=== PATIENT | female | born 1995 ===

== ENCOUNTER 2024-07-07 16:36 | Emergency (ER) | payer OTHER, SELFPAY ==
[2024-07-07 16:41] VITALS: BP 126/85
[2024-07-07] MEDS: AUGMENTIN 875 MG/125 MG 1 TABLET PO (18:20)
--- NOTE | 2024-07-07 19:11 | ED.GENMED ---
History of Present Illness
General
Chief Complaint: Oral/Mouth Problem
Source: patient
Exam Limitations: none
Time Seen by Provider: 07/07/24 17:59
Nursing documentation reviewed up to this point in time: agreed with
History of Present Illness
History of Present Illness:
Patient to ED with complaint of swelling to sublingual region of mouth. States she had URI approx 1 week ago and symptms started after URI. Denies fever/chills. No difficulty swallowing, No prior historry of same.
Past History
Past History
ED Past Medical History: None
ED Past Surgical History: None
Review of Systems
Review of Systems
Allergies reviewed?: Yes
All Other Systems: ROS reviewed and negative except as documented in HPI and ROS
Constitutional: Reports no symptoms
EENT: Reports other (pain and swelling to sublingual region)
Respiratory: Reports no symptoms
Cardiac: Reports no symptoms
ABD/GI: Reports no symptoms
Musculoskeletal: Reports no symptoms
Skin: Reports no symptoms
Neurological: Reports no symptoms
Psychiatric: Reports no symptoms
Phy Exam
General Physical Exam
General Presentation: well appearing and no apparent distress
General age: appears stated age
General Skin: warm and dry
General Habitus: normal
General Mental: alert
ENT Exam
ENT Exam: pharynx normal, swallowing well and other (mild sublingual swelling)
Musculoskeletal Exam
Musculoskeletal Exam: full ROM and neuro vasc intact
Skin Exam
Skin Exam: normal color, warm/dry and no rash
Psychiatric Exam
Psychiatric Exam: normal mood/affect
Course
Orders/Labs/Results
Orders:
Orders
07/07/24 18:11
Amoxicillin 875 mg/Clav 125 mg [Augmentin 875 mg/125 mg] 1 tablet PO NOW STA
Vital Signs
Initial and Last Documented VS:
Initial Vital Signs
Temp Pulse Resp BP
98.5 F 86 20 126/85
07/07/24 16:41 07/07/24 16:41 07/07/24 16:41 07/07/24 16:41
Last Documented Vital Signs
Temp Pulse Resp BP
98.5 F 86 20 126/85
07/07/24 16:41 07/07/24 16:41 07/07/24 16:41 07/07/24 16:41
*Critical Care Note
Total Time (30-74mins, 75-104mins- exclusive of procedures): Not Applicable
Update Note
Update Note:
Mild sublimgual swelling - possible salivary stone. WIll cover with antibiotic, recommend f/u dentist. Given instructions on s/s to return to ED and she is agreeable to plan.
ED Attending Note
-
Portions of this chart may have been created with voice recognition software.� Occasional wrong word or��sound alike� substitutions may have occurred due to the inherent limitations of voice recognition software.
Discharge Plan
Departure
Patient Disposition: Home (Routine Discharge)
Date of Disposition: 07/07/24
Time of Disposition: 18:11
Patient with high blood pressure during this ER visit?: No
Condition: Good
Covid-19: Not Applicable
Discharge Problem:
Sublingual gland swelling
Instructions: Salivary Gland Stones
Prescriptions:
New
amoxicillin-pot clavulanate 875-125 mg tablet
1 tab PO BID Qty: 10 0RF
No Action
Iron
1 tab PO DAILY
Vitamin
1 tab PO DAILY
Vitamin D
1 tab PO DAILY
acetaminophen 325 mg Tablet
650 mg PO Q4HPRN PRN (Reason: mild pain) Qty: 0 0RF
ibuprofen 600 mg Tablet
600 mg PO Q4HPRN PRN (Reason: moderate pain/cramps) Qty: 0 0RF
Referrals:
Bertha Cabrera, DMD [Active] -
Interventions
Interventions:
*Risk Screen - Suicide Last Done: 07/07/24 17:38
*Neglect/Abuse Screening Last Done: 07/07/24 17:38
*Nursing Disposition Last Done: 07/07/24 18:56
Discharge Date and Time
Discharge Date/Time: 07/07/24 18:56
Print Language: IRAQI
== END 2024-07-07 18:56 | disposition home or self-care (01) ==
LOC: EMR 16:36
PROVIDERS: EMERGENCY PHYSICIAN Student in an Organized Health Care Education/Training Program
DX: R59.9 Enlarged lymph nodes, unspecified (principal)
CPT/HCPCS: 99282

== ENCOUNTER 2024-07-10 19:00 | Emergency (ER) | payer OTHER, SELFPAY ==
[2024-07-10 19:00] VITALS: BMI 30.3
[2024-07-10 19:05] VITALS: BP 121/80
[2024-07-10 19:26] LABS: % Basophils 0.4 % (0-2); % Immature Granulocytes 1.4 % (0-0.5); % Lymphocytes 15.5 % (20.5-51.1); % Monocytes 6.5 % (1.7-9.3); % Neutrophils 75.2 % (42.2-75.2); Absolute Basophils 0.1 10^3/uL (0-0.2); Absolute Eosinophils 0.2 10^3/uL (0-0.7); Absolute Immature Granulocytes 0.2 10^3/uL (0-0.05); Absolute Lymphocytes 2.3 10^3/uL (1.2-3.4); Absolute Neutrophils 11.3 10^3/uL (1.4-6.5); Hematocrit 35.4 % (37.0-47.0); Hemoglobin 12.8 g/dL (12.0-16.0); Mean Corp Hgb Conc. 36.2 g/dL (33.0-37.0); Mean Corpuscular Volume 82.9 fL (81.0-99.0); Mean Platelet Volume 10.4 fL (7.4-10.4); Nucleated Red Blood Cells % 0 %; Platelet Count 289 10^3/uL (130-400); Red Blood Cell Count 4.27 10^6/uL (4.20-5.40); Red Cell Dist. Width 12.3 % (11.5-14.5)
[2024-07-10 19:46] LABS: ALT (SGPT) 63 U/L (0-35); AST (SGOT) 40 U/L (14-36); Albumin 4.3 g/dl (3.5-5.0); Alkaline Phosphatase 121 U/L (38-126); Blood Urea Nitrogen 8 mg/dl (7-17); Carbon Dioxide 26 mmol/L (22-30); Chloride 101 mmol/L (98-107); Glucose 115 mg/dl (70-99); Potassium 4.5 mmol/L (3.5-5.1); Sodium 140 mmol/L (135-145); Total Bilirubin 0.8 mg/dl (0.2-1.3); Total Protein 7.6 g/dl (6.3-8.2); eGFR > 60.00
[2024-07-10 21:18] LABS: HCG, Serum Qualitative Screen Positive
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
--- NOTE | 2024-07-10 21:49 | ED.GENMED ---
History of Present Illness
<CRIS Greco - Last Filed: 07/10/24 23:02>
General
Chief Complaint: Oral/Mouth Problem
Source: patient
Exam Limitations: none
Time Seen by Provider: 07/10/24 21:03
History of Present Illness
History of Present Illness:
This is a 28 year old female that comes in with c/o swelling under her tongue. States that this started 2 weeks ago as being inflamed. States that this has continued to progress. Patient was seen here on Sunday and given Augmentin. States that she
feels that her tongue is swelling and that the lower gum is white and inflamed. States that she has not been able to eat for 4 days and she is 18 weeks . States that she couldn't get the antibiotics until Sunday night. States that she took
one this morning and then vomited. States that she is nauseated. Denies any fever, chills, chest pain, SOB, abd pain, diarrhea, headache, dizziness, urianry burning.
Past History
<CRIS Greco - Last Filed: 07/10/24 23:02>
Past History
ED Past Medical History: None
ED Past Surgical History: None
Social History
Tobacco: Non-smoker
Alcohol: None
Personal: Single
Living: with family
Review of Systems
<CRIS Greco - Last Filed: 07/10/24 23:02>
Review of Systems
All Other Systems: ROS reviewed and negative except as documented in HPI and ROS
Constitutional: Reports no symptoms; Denies fever or chills
EENT: Reports other (Inflammation under her tongue and lower anterior gum)
Respiratory: Reports no symptoms; Denies cough or trouble breathing
Cardiac: Reports no symptoms; Denies chest pain
ABD/GI: Reports nausea; Denies abdominal pain
: Reports no symptoms
Musculoskeletal: Reports no symptoms
Skin: Reports no symptoms
Neurological: Reports no symptoms; Denies dizzy or headache
Psychiatric: Reports no symptoms
Phy Exam
<CRIS Greco - Last Filed: 07/10/24 23:02>
General Physical Exam
General Presentation: no apparent distress
General age: appears stated age
General Skin: warm and dry
General Habitus: normal
General Mental: alert
General Hydration: appears well hydrated
ENT Exam
ENT Exam: TM's normal, neck supple and other (Swelling noted under the tongue on the soft pallet. Gum line appears white and swollen. NO difficulty swallowing. )
Eye Exam
Eye Exam: EOMI
Cardiovascular Exam
Cardiovascular Exam: regular rate/rhythm, no murmur and normal peripheral pulses
Pulmonary Exam
Pulmonary Exam: lungs clear, no respiratory distress, no rales, chest non tender, no crackles, no rhonchi, no wheezing and no cough
Musculoskeletal Exam
Musculoskeletal Exam: full ROM
Skin Exam
Skin Exam: normal color, warm/dry, no rash and no petechia
Psychiatric Exam
Psychiatric Exam: normal mood/affect
Course
<CRIS Greco - Last Filed: 07/10/24 23:02>
Orders/Labs/Results
Orders:
Orders
07/10/24 19:20
Complete Blood Count/With Diff Urgent
Comprehensive Metabolic Panel Urgent
HCG, Serum Qualitative Screen Urgent
Comment: ADDON
07/10/24 20:36
Add On- LAB Urgent
Tests Added?: serum hcg
07/10/24 21:47
Facial Bones w Contrast CT [CT Facial Bones W/ Iv Contrast] Urgent
Comment:
Reason For Exam: swelling under tongue
07/10/24 21:50
0.9% Sodium Chloride 1000 ml [Nss] 1,000 ml IV BOLUS
Metoclopramide [Reglan] 10 mg IV NOW STA
Nursing to Place Non Medication Order As Directed
Physician Order: Have patient take her antibiotic that is with her after the Reglan.
Above order entered?: Yes
Abnormal Lab Results
07/10/24
19:20
WBC 15.0 H 10^3/uL
(4.8-10.8)
Hct 35.4 L %
(37.0-47.0)
Abs Immat Gran (auto) 0.2 H 10^3/uL
(0-0.05)
Absolute Neuts (auto) 11.3 H 10^3/uL
(1.4-6.5)
Absolute Monos (auto) 1.0 H 10^3/uL
(0.1-0.6)
Immature Gran % 1.4 H %
(0-0.5)
Lymphocytes % 15.5 L %
(20.5-51.1)
Creatinine 0.5 L mg/dL
(0.6-1.0)
Glucose 115 H mg/dl
(70-99)
AST 40 H U/L
(14-36)
ALT 63 H U/L
(0-35)
07/10/24 19:20
07/10/24 19:20
Leukocytosis, Glucose nonfasting. AST/ALT mildly elevated.
Vital Signs
Initial and Last Documented VS:
Initial Vital Signs
Temp Pulse Resp BP Pulse Ox
98.4 F 91 18 121/80 99
07/10/24 19:05 07/10/24 19:05 07/10/24 19:05 07/10/24 19:05 07/10/24 19:05
Last Documented Vital Signs
Temp Pulse Resp BP Pulse Ox
98.4 F 93 18 117/63 99
07/10/24 19:05 07/10/24 22:15 07/10/24 22:15 07/10/24 22:15 07/10/24 22:15
<Aga Tsai, DO - Last Filed: 07/10/24 22:37>
Orders/Labs/Results
Orders:
Orders
07/10/24 19:20
Complete Blood Count/With Diff Urgent
Comprehensive Metabolic Panel Urgent
HCG, Serum Qualitative Screen Urgent
Comment: ADDON
07/10/24 20:36
Add On- LAB Urgent
Tests Added?: serum hcg
07/10/24 21:47
[address] Bones w Contrast CT [CT Facial Bones W/ Iv Contrast] Urgent
Comment:
Reason For Exam: swelling under tongue
07/10/24 21:50
0.9% Sodium Chloride 1000 ml [Nss] 1,000 ml IV BOLUS
Metoclopramide [Reglan] 10 mg IV NOW STA
Nursing to Place Non Medication Order As Directed
Physician Order: Have patient take her antibiotic that is with her after the Reglan.
Above order entered?: Yes
Abnormal Lab Results
07/10/24
19:20
WBC 15.0 H 10^3/uL
(4.8-10.8)
Hct 35.4 L %
(37.0-47.0)
Abs Immat Gran (auto) 0.2 H 10^3/uL
(0-0.05)
Absolute Neuts (auto) 11.3 H 10^3/uL
(1.4-6.5)
Absolute Monos (auto) 1.0 H 10^3/uL
(0.1-0.6)
Immature Gran % 1.4 H %
(0-0.5)
Lymphocytes % 15.5 L %
(20.5-51.1)
Creatinine 0.5 L mg/dL
(0.6-1.0)
Glucose 115 H mg/dl
(70-99)
AST 40 H U/L
(14-36)
ALT 63 H U/L
(0-35)
07/10/24 19:20
07/10/24 19:20
Vital Signs
Initial and Last Documented VS:
Initial Vital Signs
Temp Pulse Resp BP Pulse Ox
98.4 F 91 18 121/80 99
07/10/24 19:05 07/10/24 19:05 07/10/24 19:05 07/10/24 19:05 07/10/24 19:05
Last Documented Vital Signs
Temp Pulse Resp BP Pulse Ox
98.4 F 93 18 117/63 99
07/10/24 19:05 07/10/24 22:15 07/10/24 22:15 07/10/24 22:15 07/10/24 22:15
<CRIS Greco - Last Filed: 07/10/24 23:02>
MDM/Problems Addressed
Differential Diagnosis Includes:
Dental abscess
MDM/Problems Addressed:
This is a 28 year old female that comes in with c/o swelling under her tongue. Patient was seen here on Sunday and started on antibiotics. States that she can't eat and has not been able to keep the anibiotics down. States that she has an
appointment tomorrow with an oral surgeon.
Will check labs and CT face, Will give IV fluids and Reglan for the nausea. Patient to follow up with the ORal surgeon tomorrow.
Chronic conditions affecting care:
NA
Acute Exacerbation and/or Progression of Chronic Illness:
NA
<CRIS Greco - Last Filed: 07/10/24 23:02>
*Radiology
Radiology exam reviewed: radiology read reviewed (CT facial bones-Essentially unremarkable exam. No fluid collections. )
*Pulse Oximetry
Patient hypoxic: no
*EKG
Interpreted by ED Provider?: NA
Rate: EKG- N/A
*Furnace Stock Inspector Interpretation
Rate: Furnace Stock Inspector- N/A
*Critical Care Note
Total Time (30-74mins, 75-104mins- exclusive of procedures): Not Applicable
ED Attending Note
<CRIS Greco - Last Filed: 07/10/24 23:02>
-
Portions of this chart may have been created with voice recognition software.� Occasional wrong word or��sound alike� substitutions may have occurred due to the inherent limitations of voice recognition software.
<Aga Tsai DO - Last Filed: 07/10/24 22:37>
ED Attending Note
Patient seen and examined by attending physician: Yes
I performed the substantive portion of visit, reviewed & personally made and approve the management plan that is documented in note by myself or RAKEL.: Yes
I performed a history and physical exam of patient and discussed management with resident, I reviewed resident's note and agree with documented findings and plan of care.: Yes
ED Attending Note:
Patient seen and examined at bedside, 28-year-old female, 18 weeks presenting for worsening swelling underneath her tongue. Reports symptoms for the past 2 weeks. She notes increasing pain to the area, particularly with eating. Denies
fever. Denies drainage. She came to the ER 3 days ago, was thought to have a growing infection versus a salivary gland stone. She was started on an antibiotic, however notes that she is difficulty tolerating the antibiotic. Symptoms were
preceded by URI. She went to the dentist today who was concerned on the appearance of the swelling, sent to the ER. She denies difficulty breathing or difficulty handling secretions. Vital signs are normal.
On exam, patient is well-appearing, handling secretions without difficulty, no respiratory distress. Airway is intact and patent. There is a focal area of swelling underneath the tongue, sublingual, which looks like a growth. Mild tenderness to
palpation without fluctuance. The floor of the mouth does not appear to be involved, without concern for Lud[place]igs. Unclear etiology of the swelling. For this reason decision made to proceed with CT imaging. Will shield given . Labs
obtained, mild leukocytosis, however could be reactive in .
22:30 - CT without acute process or significant sign of infection. At this time suspect dermoid cyst. Patient has an appointment with the oral surgeon tomorrow, which I advised that she maintain. Otherwise feel stable for discharge. Strict
return precautions communicated and patient verbalized understanding
Discharge Plan
Departure
Patient Disposition: Home (Routine Discharge)
Date of Disposition: 07/10/24
Time of Disposition: 22:57
Patient with high blood pressure during this ER visit?: No
Condition: Good
Covid-19: Not Applicable
Discharge Problem:
Swelling lower palet
Prescriptions:
New
metoclopramide HCl [Reglan] 10 mg tablet
10 mg PO Q6H PRN (Reason: nausea and vomiting) Qty: 6 0RF
No Action
Iron
1 tab PO DAILY
Vitamin
1 tab PO DAILY
Vitamin D
1 tab PO DAILY
acetaminophen 325 mg Tablet
650 mg PO Q4HPRN PRN (Reason: mild pain) Qty: 0 0RF
ibuprofen 600 mg Tablet
600 mg PO Q4HPRN PRN (Reason: moderate pain/cramps) Qty: 0 0RF
amoxicillin-pot clavulanate 875-125 mg tablet
1 tab PO BID Qty: 10 0RF
Referrals:
NONE,* [Family Provider] -
Activity Restrictions/Additional Instructions:
As discussed, your blood work shows that your white blood cell count is elevated. This can happen with . Your CT of the face is negative for any fluid collection or abscess. Please continue with the antibiotics you have been given. A
prescription for Reglan has been sent to your Pharmacy to help with any nausea/vomiting. Follow up with the Oral surgeon tomorrow as scheduled. IF YOU HAVE ANY OTHER CONCERNS PLEASE RETURN TO THE EMERGENCY ROOM.
Interventions
Interventions:
*Risk Screen - Suicide Last Done: 07/10/24 20:37
*General Assessment Last Done: 07/10/24 19:05
*Neglect/Abuse Screening Last Done: 07/10/24 19:05
ED- Fall Risk Assessment Last Done: 07/10/24 20:46
Discharge Date and Time
Print Language: DANISH
[2024-07-10] MEDS: REGLAN 10 MG IV (22:13)
[2024-07-10] MEDS: NSS 1000 IV (22:14)
[2024-07-10 22:15] VITALS: BP 117/63
[2024-07-10 23:05] VITALS: BP 114/68
[2024-07-10 23:17] VITALS: BP 114/68
== END 2024-07-10 23:30 | disposition home or self-care (01) ==
LOC: EMR 19:00
PROVIDERS: Emergency Medicine; EMERGENCY PHYSICIAN Student in an Organized Health Care Education/Training Program
DX: O99.512 Diseases of the respiratory system complicating pregnancy, second trimester (principal); O21.9 Vomiting of pregnancy, unspecified; Z3A.18 18 weeks gestation of pregnancy; R22.0 Localized swelling, mass and lump, head
CPT/HCPCS: 99285; 96361; 96374; 70487; 80053; 84703; 85025; Q9967

== ENCOUNTER 2024-12-26 11:03 | Observation (INO) | payer OTHER, SELFPAY ==
[2024-12-26 11:09] VITALS: BP 115/63; BMI 35.9
== END 2024-12-26 12:10 | disposition home or self-care (01) ==
LOC: LDRP 11:03
PROVIDERS: ADMITTING PHYSICIAN Obstetrics & Gynecology
DX: O48.0 Post-term pregnancy (principal); Z3A.41 41 weeks gestation of pregnancy
CPT/HCPCS: 59025; 36415; 76815; 86850; 86900; 86901; G0378

== ENCOUNTER 2024-12-28 10:12 | Inpatient (IN) | payer OTHER, SELFPAY ==
[2024-12-28 10:22] VITALS: BP 122/80; BMI 35.9
[2024-12-28] MEDS: LR 1000 IV ×2 (11:15→12:16)
[2024-12-28 11:33] LABS: % Basophils 0.6 % (0-2); % Eosinophils 0.3 % (0-6); % Immature Granulocytes 0.4 % (0-0.5); % Lymphocytes 13.5 % (20.5-51.1); % Monocytes 5.2 % (1.7-9.3); Absolute Basophils 0.1 10^3/uL (0-0.2); Absolute Immature Granulocytes 0.1 10^3/uL (0-0.05); Absolute Lymphocytes 1.8 10^3/uL (1.2-3.4); Absolute Monocytes 0.7 10^3/uL (0.1-0.6); Absolute Neutrophils 10.4 10^3/uL (1.4-6.5); Hemoglobin 9.9 g/dL (12.0-16.0); Mean Corp Hgb Conc. 31.9 g/dL (33.0-37.0); Mean Corpuscular Volume 78.3 fL (81.0-99.0); Mean Platelet Volume 11.2 fL (7.4-10.4); Nucleated Red Blood Cells % 0.2 %; Platelet Count 171 10^3/uL (130-400); Red Blood Cell Count 3.96 10^6/uL (4.20-5.40); Red Cell Dist. Width 15.6 % (11.5-14.5)
[2024-12-28] MEDS: VALTREX 500 MG PO (12:12)
[2024-12-28] MEDS: PITOCIN 30 UNITS/NSS 500 ML IV (19:34)
[2024-12-28] MEDS: MOTRIN 600 MG PO (21:25)
[2024-12-29 04:48] LABS: Hematocrit 27.7 % (37.0-47.0)
[2024-12-29] MEDS: MOTRIN 600 MG PO ×3 (08:01→20:34)
[2024-12-29] MEDS: PRENATAL PLUS 1 TABLET PO (08:01)
[2024-12-29] MEDS: SENOKOT-S 1 TABLET PO (08:01)
--- NOTE | 2024-12-29 10:31 | CM ---
Met with new mom Mary at bedside
Mom reports she lives at listed address, [place] [phone] with her 2 yo son
SHARI Plascencia - involved/supportive. + family support
Currently deciding on baby's name
Mom reports she has supplies at home for including crib and car seat
Mom reports she has a breast pump at home - declining breast pump
Peds - plans to use [facility] [place]
[facility] - [facility] for f/u [facility]
CM remains available to family during admission
[2024-12-30] MEDS: MOTRIN 600 MG PO (05:27)
[2024-12-30] MEDS: FEOSOL 325 MG PO (07:57)
[2024-12-30] MEDS: PRENATAL PLUS 1 TABLET PO (07:57)
[2024-12-30 15:54] LABS: Syphilis/T. pallidum Ab Reflex Negative (Negative)
== END 2024-12-30 14:45 | disposition home or self-care (01) | DRG 807 ==
LOC: LDRP 10:12
PROVIDERS: ADMITTING PHYSICIAN Obstetrics & Gynecology
PROC: 10E0XZZ Delivery of Products of Conception, External Approach (ICD-10-PCS; 2024-12-28)
PROC: 0KQM0ZZ Repair Perineum Muscle, Open Approach (ICD-10-PCS; 2024-12-28)
PROC: 10907ZC Drainage of Amniotic Fluid, Therapeutic from Products of Conception, Via Natural or Artificial Opening (ICD-10-PCS; 2024-12-28)
DX: O48.0 Post-term pregnancy (principal); Z37.0 Single live birth; Z3A.41 41 weeks gestation of pregnancy; O69.81X0 Labor and delivery complicated by cord around neck, without compression, not applicable or unspecified; O70.1 Second degree perineal laceration during delivery; O90.81 Anemia of the puerperium
CPT/HCPCS: 88307; 85014; 85018; 85025; 86780; 86850; 86900; 86901